=== PATIENT | female | born 1995 | race African-American/Black ===

== ENCOUNTER 2018-01-06 12:09 | Emergency (ER) | payer OTHER ==
[2018-01-06] MEDS ORDERED: Ibuprofen TAB* 600 MG PO ONE (13:23)
[2018-01-06] MEDS ORDERED: Cyclobenzaprine TAB* 10 MG PO ONE (13:23)
[2018-01-06 13:25] VITALS: BP 128/61
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
[2018-01-06] MEDS ORDERED: Ketorolac INJ* 60 MG/2 ML VIAL IM ONE (14:05)
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
== END 2018-01-06 14:47 | disposition home or self-care (01) ==
LOC: UCEAST 12:09
DX: S76.912A Strain of unspecified muscles, fascia and tendons at thigh level, left thigh, initial encounter (principal); X50.9XXA Other and unspecified overexertion or strenuous movements or postures, initial encounter; Y93.9 Activity, unspecified; Y92.9 Unspecified place or not applicable; Z72.0 Tobacco use
CPT/HCPCS: 99212; A9270-GY; G0463; J1885

== ENCOUNTER 2018-01-15 08:43 | Emergency (ER) | payer OTHER ==
[2018-01-15 09:03] VITALS: BP 111/66
--- NOTE | 2018-01-15 10:03 | UC ---
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 She is also curious if she has an exercise-induced bronchospasm is occasionally after hard workout she'll feel she needs to take some deep breaths she's never been known to wheeze. She has no other upper respiratory symptoms no fevers chills no earache sore throat nasal drainage - History of Current Complaint Chief Complaint: UCEye Stated Complaint: EYE ISSUE Time Seen by Provider: 01/15/18 09:53 Hx Obtained From: Patient Hx Last Menstrual Period: 12/23/17 ?: No Onset/Duration: Sudden Onset, Lasting Days Timing: Constant Severity Initially: Moderate Severity Currently: Moderate Pain Intensity: 7 Pain Scale Used: 0-10 Numeric Aggravating Factors: Nothing Alleviating Factors: Nothing Associated Signs And Symptoms: Negative: URI, Nasal Congestion - Allergies/Home Medications Allergies/Adverse Reactions: Allergies Allergy/AdvReac Type Severity Reaction Status Date / Time cocoa butter Allergy Itching Verified 01/15/18 08:58 PMH/Surg Hx/FS Hx/Imm Hx Previously Healthy: Yes - Surgical History Surgical History: None - Family History Known Family History: Positive: Hypertension - Social History Occupation: Employed Full-time Lives: With Family Alcohol Use: Occasionally Alcohol Amount: Wine, liquor Substance Use Type: None Smoking Status (MU): Current Some Day Smoker Type: Cigarettes Amount Used/How Often: 1 cigarette/week Length of Time of Smoking/Using Tobacco: 4 years Have You Smoked in the Last Year: Yes Household Exposure Type: Cigars Review of Systems Constitutional: Negative Skin: Negative Eyes: Eye Redness - Erythema slight swelling right eye, no visual deficits ENT: Negative Respiratory: Negative Cardiovascular: Negative Gastrointestinal: Negative Genitourinary: Negative Motor: Negative Neurovascular: Negative Musculoskeletal: Negative Neurological: Negative Psychological: Negative Is Patient Immunocompromised?: No All Other Systems Reviewed And Are Negative: Yes Physical Exam Triage Information Reviewed: Yes Appearance: Well-Appearing, No Pain Distress, Well-Nourished Vital Signs: Initial Vital Signs Temp 97.9 F 01/15/18 08:59 Pulse 74 01/15/18 08:59 Resp 18 01/15/18 08:59 BP 111/66 01/15/18 08:59 Pulse Ox 100 01/15/18 08:59 Vital Signs Reviewed: Yes Eye Exam: Normal Eyes: Positive: Other: - Slight swelling right upper eyelid some injection right eye PERRLA, EOMI no photophobia ENT Exam: Normal ENT: Positive: Normal ENT inspection, Hearing grossly normal, Pharynx normal. Negative: Nasal congestion, Trismus, Muffled voice, Hoarse voice Dental Exam: Normal Neck exam: Normal Neck: Positive: Supple, Nontender Respiratory Exam: Normal Respiratory: Positive: Chest non-tender, Lungs clear, Normal breath sounds, No respiratory distress, No accessory muscle use Cardiovascular Exam: Normal Cardiovascular: Positive: Pulses Normal, Brisk Capillary Refill Musculoskeletal Exam: Normal Musculoskeletal: Positive: Strength Intact, ROM Intact, No Edema Neurological Exam: Normal Neurological: Positive: Alert, Muscle Tone Normal Psychological Exam: Normal Skin Exam: Normal UC Diagnostic Evaluation - Laboratory O2 Sat by Pulse Oximetry: 100 Respiratory Course/Dx - Course Course Of Treatment: Patient provided education for exercise-induced bronchospasm and the difference between that and asthma. Patient taken out of work for 24 hours due to conjunctivitis. Antibiotics eyedrops started. Patient will try albuterol inhaler when necessary and notify primary care provider of results - Differential Dx/Diagnosis Provider Diagnoses: OD conjunctivitis, exercise induced bronchospasm, nicotine abuse Discharge - Sign-Out/Discharge Documenting (check all that apply): Discharge - Discharge Plan Condition: Stable Disposition: HOME Prescriptions: Albuterol HFA INHALER* [Ventolin HFA Inhaler*] 2 puff INH Q4H PRN #1 mdi PRN Reason: cough, chest tightness Polymyx/Trimethoprim OPTH* [Polytrim OPHTH*] 1 drop RIGHT EYE QID #1 btl Patient Education Materials: Exercise-Induced Bronchoconstriction (ED), Conjunctivitis (ED) Forms: *Work Release Referrals: [facility] PHYSICIAN REFERRAL [Outside] - If Needed - Billing Disposition and Condition Condition: STABLE Disposition: HOME
== END 2018-01-15 10:09 | disposition home or self-care (01) ==
LOC: UCEAST 08:43
DX: H10.31 Unspecified acute conjunctivitis, right eye (principal); J45.990 Exercise induced bronchospasm; Z72.0 Tobacco use
CPT/HCPCS: 99212; G0463

== ENCOUNTER 2018-04-19 13:21 | Emergency (ER) | payer SELFPAY ==
[2018-04-19 13:27] VITALS: BP 132/63
[2018-04-19] MEDS ORDERED: Tetracaine 0.5% OPTH.SOL 4 ML* 1 DROP BTL RIGHT EYE ONE (13:36)
[2018-04-19] MEDS ORDERED: Fluorescein Sod TOPICAL 0.6* 0.6 MG TEST OPHTHALMIC ONE (13:36)
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
[2018-04-19] MEDS ORDERED: Ibuprofen TAB* 600 MG PO ONE (14:07)
== END 2018-04-19 14:15 | disposition home or self-care (01) ==
LOC: UCEAST 13:21
DX: S05.01XA Injury of conjunctiva and corneal abrasion without foreign body, right eye, initial encounter (principal); F17.210 Nicotine dependence, cigarettes, uncomplicated; Z91.018 Allergy to other foods; Y04.0XXA Assault by unarmed brawl or fight, initial encounter; Y92.9 Unspecified place or not applicable
CPT/HCPCS: 99212; A9270-GY; G0463

== ENCOUNTER 2018-04-25 14:21 | Emergency (ER) | payer SELFPAY ==
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
--- NOTE | 2018-04-25 17:11 | RAD ---
INDICATION: Pain at the left temporomandibular joint COMPARISON: None. TECHNIQUE: 5 views of the mandible were obtained. FINDINGS: The adequately corticated bones are in normal alignment. No fracture is seen. IMPRESSION: NO EVIDENCE FOR FRACTURE OR OTHER FOCAL BONY ABNORMALITY. IF THE PATIENT'S SYMPTOMS PERSIST RECOMMEND FOLLOW-UP IMAGING
[2018-04-25 17:49] VITALS: BP 118/67
== END 2018-04-25 17:40 | disposition home or self-care (01) ==
LOC: UCEAST 14:21
DX: S00.83XA Contusion of other part of head, initial encounter (principal); R10.11 Right upper quadrant pain; Z91.018 Allergy to other foods; Z72.0 Tobacco use; X58.XXXA Exposure to other specified factors, initial encounter; Y92.9 Unspecified place or not applicable
CPT/HCPCS: 70110; 81003; 84702; 99214; G0463

== ENCOUNTER 2018-04-25 18:32 | Emergency (ER) | payer MEDICAID ==
[2018-04-25 20:56] LABS: Hematocrit 34 % (35-47); Hemoglobin 10.8 g/dl (12.0-16.0); Mean Corpuscular HGB Conc 31 g/dl (31-36); Mean Corpuscular Hemoglobin 21 pg (27-31); Mean Corpuscular Volume 65 fL (80-97); Mean Platelet Volume 8.9 um3 (7.4-10.4); Platelet Count 225 10^3/ul (150-450); Red Blood Count 5.26 10^6/ul (4.00-5.40); Red Cell Distribution Width 19 % (10.5-15); White Blood Count 9.3 10^3/ul (3.5-10.8)
[2018-04-25 21:02] LABS: EGFR Non-African American 96.6 (>60)
[2018-04-25 21:18] LABS: ABS Basophils 0.1 10^3/ul (0-0.2); ABS Eosinophils 0.1 10^3/ul (0-0.6); ABS Lymphocytes 2.1 10^3/ul (1.0-4.8); ABS Monocytes 0.6 10^3/ul (0-0.8); ABS Neutrophils 6.5 10^3/ul (1.5-7.7); ABS Nucleated RBC 0 10^3/ul; Eosinophil % 0.7 % (0-6); Lymphocyte % 22.5 % (25-47); Nucleated Red Blood Cells % 0.1
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
[2018-04-25] MEDS ORDERED: Lidocaine 2% VISCOUS* 15 ML UDC PO ONE (22:26)
[2018-04-25] MEDS ORDERED: Al Hydrox/Mg Hydrox/Simet LIQ* 30 ML UDC PO ONE (22:26)
[2018-04-25 22:36] LABS: Urine Appearance Clear; Urine Blood Negative (Negative); Urine Color Straw; Urine Ketones 1+ (Negative); Urine Protein Negative (Negative); Urine Urobilinogen Negative (Negative)
[2018-04-25 23:19] VITALS: BP 139/80
--- NOTE | 2018-04-26 07:00 | RAD ---
INDICATION: Right upper quadrant pain. COMPARISON: There are no prior studies available for comparison. TECHNIQUE: Multiple real-time images of the right upper quadrant were obtained. FINDINGS: The gallbladder appears slightly contracted. There is mild thickening of the wall which appears to be secondary to the contracted state. No gallstones are seen. No pericholecystic fluid is present. No positive sonographic Darden sign was noted. No intra or extrahepatic ductal distention is present. The common bile duct measured 0.4 cm in diameter. The liver is normal in size without significant focal abnormality. The pancreas is partially obscured by overlying bowel gas. The right kidney is normal in size without evidence for hydronephrosis. IMPRESSION: MILDLY CONTRACTED GALLBLADDER, OTHERWISE UNREMARKABLE STUDY.
== END 2018-04-25 23:17 | disposition home or self-care (01) ==
LOC: ED 18:32
DX: R10.13 Epigastric pain (principal); R10.11 Right upper quadrant pain; R11.0 Nausea; K82.0 Obstruction of gallbladder; F41.0 Panic disorder [episodic paroxysmal anxiety]; Z72.0 Tobacco use
CPT/HCPCS: 36415; 76705; 80053; 81003; 83690; 84702; 85025; 86140; 99283; A9270-GY

== ENCOUNTER 2018-07-31 13:35 | Emergency (ER) | payer SELFPAY ==
[2018-07-31 15:09] LABS: ABS Basophils 0 10^3/ul (0-0.2); ABS Eosinophils 0.1 10^3/ul (0-0.6); ABS Lymphocytes 1.3 10^3/ul (1.0-4.8); ABS Monocytes 0.5 10^3/ul (0-0.8); ABS Neutrophils 4.9 10^3/ul (1.5-7.7); ABS Nucleated RBC 0 10^3/ul; Eosinophil % 0.8 % (0-6); Hematocrit 34 % (35-47); Hemoglobin 10.7 g/dl (12.0-16.0); Lymphocyte % 19.1 % (25-47); Mean Corpuscular HGB Conc 31 g/dl (31-36); Mean Corpuscular Hemoglobin 20 pg (27-31); Mean Corpuscular Volume 65 fL (80-97); Mean Platelet Volume 8.5 um3 (7.4-10.4); Nucleated Red Blood Cells % 0; Platelet Count 222 10^3/ul (150-450); Red Blood Count 5.32 10^6/ul (4.00-5.40); Red Cell Distribution Width 21 % (10.5-15); White Blood Count 6.7 10^3/ul (3.5-10.8)
[2018-07-31 15:21] LABS: EGFR Non-African American 93.7 (>60)
--- NOTE | 2018-07-31 15:50 | RAD ---
Indication: Back pain. 3 views of the lumbar spine demonstrate vertebral bodies to be normal in height. Disc spaces all well-preserved. There is straightening of the normal lordosis. IMPRESSION: Straightening of the normal lordosis without evidence of fracture.
--- NOTE | 2018-07-31 20:45 | RAD ---
EXAM: US Abdomen Limited, Right Upper Quadrant EXAM DATE/TIME: 07/31/2018 7:53 PM CLINICAL HISTORY: 22 years old, female; Pain; Abdominal pain; Localized; Right upper quadrant (ruq); Additional info: Ruq pain TECHNIQUE: Real-time ultrasound of the abdomen with image documentation. Examination was focused on the right upper quadrant. COMPARISON: GB US GALL BLADDER 04/25/2018 9:07 PM FINDINGS: Liver: Normal. No masses. Gallbladder: Normal. No gallstones. There is no gallbladder wall thickening. Negative sonographic Darden sign. Common bile duct: Normal. No stones. No dilation. Pancreas: Visualized pancreas is unremarkable. Right kidney: Normal. No mass. No hydronephrosis. IMPRESSION: No acute findings. To contact [facility] with a general question: [facility] - [phone] For direct physician to physician contact: Physician Hotline - [phone] [facility] ([facility] Facility ID #[id number])
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
[2018-07-31 21:04] LABS: Urine Appearance Clear; Urine Blood Negative (Negative); Urine Color Straw; Urine Ketones Negative (Negative); Urine Protein Negative (Negative); Urine Specific Gravity 1.004 (1.010-1.030); Urine Urobilinogen Negative (Negative)
[2018-07-31 21:18] VITALS: BP 118/67
--- NOTE | 2018-08-04 06:46 | PN ---
Progress Note - Progress Note Date of Service: 08/04/18 Note: patient wound culture grew peptostreptococcus anerobius and normal nataliya. sent script for augmentin 500mg bid x7days. left vm with patient told that if notice redness or getting worst to start script.
== END 2018-07-31 21:17 | disposition home or self-care (01) ==
LOC: ED 13:35
DX: S39.012A Strain of muscle, fascia and tendon of lower back, initial encounter (principal); R10.11 Right upper quadrant pain; L02.91 Cutaneous abscess, unspecified; F17.210 Nicotine dependence, cigarettes, uncomplicated; X58.XXXA Exposure to other specified factors, initial encounter; Y92.9 Unspecified place or not applicable
CPT/HCPCS: 10060; 36415; 72100; 76705; 80053; 81003; 85025; 87070; 87076; 87205; 87640; 87641; 93005; 99284

== ENCOUNTER 2018-09-17 15:26 | Emergency (ER) | payer OTHER ==
[2018-09-17 15:37] VITALS: BP 117/57
[2018-09-17] MEDS ORDERED: Sulfamethox/Trimethoprim DS 800/160* TAB PO ONE (16:18)
[2018-09-17] MEDS ORDERED: Phenazopyridine TAB* 100 MG PO ONE (16:18)
--- NOTE | 2018-09-17 16:24 | UC ---
Abdominal Pain Female HPI - HPI Summary HPI Summary: 22-year-old woman comes to clinic today with a chief complaint of abdominal pain. Pain started this morning. It's crampy. It's primarily just above the umbilicus. She notes that she has not had a bowel movement 3 days and she feels like she needs to have a bowel movement. She is tried extra water lemon juice yoga and she still has not had a bowel movement. Pains about a 7 out of 10. Is also worse when you push on IT. No fevers. He did vomit after eating. No prior surgeries. She has had increased urinary frequency today. No abnormal vaginal discharge. Denies any concerns of STI. She does have chronic intermittent right upper quadrant pain and she's been seen in the emergency department in April and July 2018 for this. She had a normal ultrasound and essentially normal lab work and July 2018 for this intermittent chronic right upper quadrant pain. She is also having the discomfort today but the pain that she's coming to clinic for is different than her chronic intermittent right upper quadrant pain. - History of Current Complaint Chief Complaint: UCAbdominalPain Stated Complaint: ABDOMINAL PAIN Time Seen by Provider: 09/17/18 15:33 Hx Last Menstrual Period: 08/25/18 Pain Intensity: 8 Allergies/Adverse Reactions: Allergies Allergy/AdvReac Type Severity Reaction Status Date / Time coconut Allergy Severe Airway Verified 09/17/18 15:38 Obstruction cocoa butter Allergy Itching Verified 09/17/18 15:38 PMH/Surg Hx/FS Hx/Imm Hx Previously Healthy: Yes - Surgical History Surgical History: None - Family History Known Family History: Positive: Hypertension - Social History Alcohol Use: Rare Alcohol Amount: Wine, liquor Substance Use Type: Marijuana Smoking Status (MU): Never Smoked Tobacco Type: Cigarettes Amount Used/How Often: 1 cigarette/week Length of Time of Smoking/Using Tobacco: 4 years Have You Smoked in the Last Year: Yes Household Exposure Type: Cigars Review of Systems All Other Systems Reviewed And Are Negative: Yes Constitutional: Positive: Negative Skin: Positive: Negative Eyes: Positive: Negative ENT: Positive: Negative Respiratory: Positive: Negative Cardiovascular: Positive: Negative Gastrointestinal: Positive: Abdominal Pain, Vomiting, Nausea Genitourinary: Positive: Dysuria, Frequency, Urgency. Negative: Vaginal/Penile Burning, Vaginal/Penile Itching, Vaginal/Penile Discharge, Vaginal/Penile Pain Motor: Positive: Negative Neurovascular: Positive: Negative Musculoskeletal: Positive: Negative Neurological: Positive: Negative Psychological: Positive: Negative Is Patient Immunocompromised?: No Physical Exam Triage Information Reviewed: Yes Appearance: Well-Appearing, Well-Nourished, Pain Distress - MILD Vital Signs: Initial Vital Signs Temp 98.8 F 09/17/18 15:33 Pulse 86 09/17/18 15:33 Resp 18 09/17/18 15:33 BP 117/57 09/17/18 15:33 Pulse Ox 100 09/17/18 15:33 Vital Signs Reviewed: Yes Eye Exam: Normal Eyes: Positive: Conjunctiva Clear Neck exam: Normal Neck: Positive: Supple Respiratory: Positive: Lungs clear, Normal breath sounds, No respiratory distress Cardiovascular Exam: Normal Cardiovascular: Positive: RRR Abdomen Description: Positive: Other: - Tender to palpation in the epigastrium and just superior to the umbilicus. Patient is nontender in the right lower quadrant suprapubic or left lower quadrant areas. No rebound.. Negative: CVA Tenderness (R), CVA Tenderness (L) Bowel Sounds: Positive: Present Musculoskeletal Exam: Normal Musculoskeletal: Positive: Strength Intact, ROM Intact Neurological Exam: Normal Neurological: Positive: Alert, Muscle Tone Normal Psychological Exam: Normal Psychological: Positive: Age Appropriate Behavior Skin Exam: Normal Abd Pain Female Course/Dx - Course Course Of Treatment: Order Information: CT ABD/PEL W/O. Accession Number: [id number]. CPT: 99801. INDICATION: Mid to upper abdominal pain beginning today. Constipation. Nausea and. vomiting. COMPARISON: July 31, 2018 RIGHT upper quadrant ultrasound. TECHNIQUE: Multidetector CT images were obtained from the lung bases to the ischial. tuberosities. No oral contrast administered. Assessment of the visceral limited without. IV contrast. Multiplanar reformation. REPORT: VISUALIZED INFERIOR THORAX: Unremarkable visualized inferior thorax. LIVER / GALLBLADDER / PANCREAS / SPLEEN: No CT abnormality of the unenhanced liver,. gallbladder, pancreas, spleen. ALIMENTARY TRACT: No CT abnormality of the upper GI, small bowel, appendix visualized. medial to the cecum, or colon evident. Negative for ascites, free air, hernias. MESENTERIC: Unremarkable. ADRENAL / GENITOURINARY: Unremarkable adrenal glands, kidneys, ureters, and partially. distended urinary bladder limiting assessment without gross abnormality. Unremarkable. anteverted uterus and LEFT adnexal region. Enlarged RIGHT ovary with approximate 4 cm. maximum dimension water density cyst most suspicious for a follicular cyst. RETROPERITONEAL: Negative for lymphadenopathy within limits of noncontrast exam. VASCULAR: Normal diameter abdominal aorta and iliac arteries. Physiologic distention of. the IVC. BONES: Variant sacralization of L5 with degenerative arthropathy at the interface of the. L5 ala with the sacral ala. Negative for suspicious focal osseous lesions. SOFT TISSUE: Unremarkable. IMPRESSION: #. No pathologic process of the alimentary tract evident. Normal appendix documented. #. 4 cm lesion of the RIGHT ovary most suspicious for a follicular cyst. Correlate with. clinical assessment and consider pelvic ultrasound for further assessment if deemed. appropriate. #. No free fluid evident. . < Electronically signed by Kevin Avendano MD in [facility]> 09/17/18 0401. I discussed the CT results and the urine results with the patient. Abdominal pains in the upper abdomen. Normal appendix demonstrated no fevers here. There is a 4 cm right ovarian cyst the patient is nontender in the right lower quadrant. For the ovarian cyst and then have her follow up with [facility]. For the recurrence abdominal pain and constipation issues. Have her follow up with gastroenterology. She should also get a primary care doctor. For the abdominal pain I discussed with her going to the emergency department which she declined. The plan is suture cell Zofran and with a single dose of magnesium citrate. For the leukocytes in the urine and urine symptoms we'll treat with Bactrim and Pyridium. Overall I let her know that if her symptoms worsen or continue she needs to be evaluated immediately in the emergency department. - Differential Dx/Diagnosis Provider Diagnosis: Abdominal pain, Epigastric pain, Constipation, Ovarian cyst, UTI (urinary tract infection) Discharge - Sign-Out/Discharge Documenting (check all that apply): Patient Departure All imaging exams completed and their final reports reviewed: Yes - Discharge Plan Condition: Stable Disposition: HOME Prescriptions: Magnesium CITRATE* [Citrate of Magnesia*] 300 ml PO ONCE #1 btl Methylcellulose (with Sugar) [Citrucel Powder] 1 tbsp PO BID #14 powder Ondansetron ODT TAB* [Zofran 4 MG Odt TAB*] 4 mg PO Q6H PRN #10 tab.odt PRN Reason: Nausea Phenazopyridine 200 mg (NF) [Pyridium 200 MG tab *] 200 mg PO TID PRN #6 tab PRN Reason: Pain Sulfamethox/Trimethoprim DS* [Bactrim DS 800/160 TAB*] 1 tab PO BID #13 tab Patient Education Materials: Acute Abdominal Pain (ED), Ovarian Cyst (ED), Constipation (ED), Urinary Tract Infection in Women (ED) Forms: *Work Release Referrals: [facility] [place] PHYSICIAN REFERRAL [Outside] [facility] Gastroenterology [Provider Group] Dori Willis MD [Medical Doctor] - [facility] [Provider Group] Additional Instructions: FOLLOW UP WITH YOUR PRIMARY CARE DOCTOR FOR YOUR UTI, GASTROENTEROLOGY FOR YOU CONSTIPATION AND ABDOMINAL PAIN, AND OBGYN FOR YOUR OVARIAN CYST. GO TO THE EMERGENCY DEPARTMENT FOR ANY WORSENING OF YOUR CONDITION; PAIN, FEVER , VOMITING, YOU FEEL ILL OR QUESTIONS OR CONCERNS. - Billing Disposition and Condition Condition: STABLE Disposition: Home
[2018-09-17] MEDS ORDERED: Lidocaine 2% VISCOUS* 15 ML UDC PO ONE (17:23)
[2018-09-17] MEDS ORDERED: Al Hydrox/Mg Hydrox/Simet LIQ* 30 ML UDC PO ONE (17:23)
--- NOTE | 2018-09-19 10:54 | UC ---
- Progress Note Progress Note: urine final- no growth no change christen 09/19/18 Course/Dx - Diagnoses Provider Diagnoses: Abdominal pain, Epigastric pain, Constipation, Ovarian cyst, UTI (urinary tract infection) Discharge - Sign-Out/Discharge Documenting (check all that apply): Post-Discharge Follow Up All imaging exams completed and their final reports reviewed: Yes - Discharge Plan Condition: Stable Disposition: HOME Prescriptions: Magnesium CITRATE* [Citrate of Magnesia*] 300 ml PO ONCE #1 btl Methylcellulose (with Sugar) [Citrucel Powder] 1 tbsp PO BID #14 powder Ondansetron ODT TAB* [Zofran 4 MG Odt TAB*] 4 mg PO Q6H PRN #10 tab.odt PRN Reason: Nausea Phenazopyridine 200 mg (NF) [Pyridium 200 MG tab *] 200 mg PO TID PRN #6 tab PRN Reason: Pain Sulfamethox/Trimethoprim DS* [Bactrim DS 800/160 TAB*] 1 tab PO BID #13 tab Patient Education Materials: Ovarian Cyst (ED), Constipation (ED), Urinary Tract Infection in Women (ED), Acute Abdominal Pain (ED) Forms: *Work Release Referrals: [facility] Gastroenterology [Provider Group] [facility] [Provider Group] [facility] [place] PHYSICIAN REFERRAL [Outside] Dori Willis MD [Medical Doctor] - Additional Instructions: FOLLOW UP WITH YOUR PRIMARY CARE DOCTOR FOR YOUR UTI, GASTROENTEROLOGY FOR YOU CONSTIPATION AND ABDOMINAL PAIN, AND OBGYN FOR YOUR OVARIAN CYST. GO TO THE EMERGENCY DEPARTMENT FOR ANY WORSENING OF YOUR CONDITION; PAIN, FEVER , VOMITING, YOU FEEL ILL OR QUESTIONS OR CONCERNS. - Billing Disposition and Condition Condition: STABLE Disposition: Home
== END 2018-09-17 17:32 | disposition home or self-care (01) ==
LOC: UCEAST 15:26
DX: R10.13 Epigastric pain (principal); R10.10 Upper abdominal pain, unspecified; K59.00 Constipation, unspecified; N83.201 Unspecified ovarian cyst, right side; N39.0 Urinary tract infection, site not specified; Z72.0 Tobacco use
CPT/HCPCS: 74176; 81003; 84702; 87086; 99213; A9270-GY; G0463

== ENCOUNTER 2019-10-21 21:28 | Emergency (ER) | payer OTHER ==
[2019-10-21 21:40] VITALS: BP 120/64
[2019-10-21] MEDS ORDERED: Lidocaine 1% MPF ** 5 ML VIAL INJ ONE (21:45)
[2019-10-21] MEDS ORDERED: Amoxicillin/Clavulanate TAB* 875 MG PO ONE (21:46)
--- NOTE | 2019-10-21 22:18 | UC ---
Skin Complaint HPI - HPI Summary HPI Summary: 2 DAYS OF WORSENING PAIN AND SWELLING RIGHT UPPER INNER THIGH. STATES SHE HAS HAD AN ABSCESS IN THAT SAME SPOT EARLIER THIS YEAR. NO FEVER. NO DRAINAGE. NO H/O MRSA. - History of Current Complaint Chief Complaint: UCSkin Time Seen by Provider: 10/21/19 21:29 Stated Complaint: SORE ON INNER THIGH Hx Obtained From: Patient Hx Last Menstrual Period: t-1 Onset/Duration: Gradual Onset, Lasting Days, Still Present Timing: Constant Onset Severity: Moderate Current Severity: Moderate Pain Intensity: 8 Pain Scale Used: 0-10 Numeric Location: Discrete - RIGHT UPPER INNER THIGH Character: Swelling, Pain, Redness Aggravating Factor(s): Touch Alleviating Factor(s): Nothing Associated Signs & Symptoms: Positive: Tenderness - Allergy/Home Medications Allergies/Adverse Reactions: Allergies Allergy/AdvReac Type Severity Reaction Status Date / Time coconut Allergy Severe Airway Verified 10/21/19 21:46 Obstruction cocoa butter Allergy Itching Verified 10/21/19 21:46 PMH/Surg Hx/FS Hx/Imm Hx Previously Healthy: Yes - Surgical History Surgical History: None - Family History Known Family History: Positive: Hypertension - Social History Alcohol Use: Rare Alcohol Amount: Wine, liquor Substance Use Type: Marijuana Substance Use Comment - Amount & Last Used: occasionally Smoking Status (MU): Never Smoked Tobacco Type: Cigarettes Amount Used/How Often: 1 cigarette/week Length of Time of Smoking/Using Tobacco: 4 years Have You Smoked in the Last Year: Yes Household Exposure Type: Cigars Review of Systems All Other Systems Reviewed And Are Negative: Yes Constitutional: Positive: Negative Skin: Positive: Other - ABSCESS Respiratory: Positive: Negative Cardiovascular: Positive: Negative Gastrointestinal: Positive: Negative Physical Exam Triage Information Reviewed: Yes Appearance: Well-Appearing, No Pain Distress, Well-Nourished Vital Signs: Initial Vital Signs Temp 98.4 F 10/21/19 21:37 Pulse 80 10/21/19 21:37 Resp 18 10/21/19 21:37 BP 120/64 10/21/19 21:37 Pulse Ox 100 10/21/19 21:37 Vital Signs Reviewed: Yes Eyes: Positive: Conjunctiva Clear ENT: Positive: Hearing grossly normal Neck: Positive: Supple Respiratory: Positive: No respiratory distress, No accessory muscle use Cardiovascular: Positive: Pulses Normal Abdomen Description: Positive: Soft Musculoskeletal: Positive: No Edema Neurological: Positive: Alert Psychological: Positive: Age Appropriate Behavior Skin: Positive: Other - 5CM X 3.5CM RAISED, FLUCTUANT, TENDER LESION RIGHT UPPER INNER THIGH Procedures - Incision and Drainage Right Upper Thigh Site: RIGHT UPPER INNER THIGH Anesthesia: Local - 1% LIDOCAINE Instrument(s): Scalpel - 11 BLADE Packing: Gauze - 1/4 INCH PLAIN Course/Dx - Course Course Of Treatment: TIME OUT COMPLETE. LA ANESTHESIA ACHIEVED WITH 1% LIDO. I&D OF ABSCESS RIGHT UPPER THIGH PERFORMED. COPIOUS PURULENT DRAINAGE EXPRESSED. WOUND PACKED. SPECIMEN SENT FOR CULTURE. 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 WILL RX AUGMENTIN TWICE DAILY FOR 10 DAYS. OTC MEDICATIONS NEEDED FOR DISCOMFORT. GIVEN THAT THIS IS A RECURRENT ABSCESS RECOMMEND SHE FOLLOW UP WITH GENERAL SURGERY TO DISCUSS DEFINITIVE MANAGEMENT. - Diagnoses Provider Diagnosis: Abscess of right thigh Discharge ED - Sign-Out/Discharge Documenting (check all that apply): Patient Departure All imaging exams completed and their final reports reviewed: No Studies - Discharge Plan Condition: Stable Disposition: HOME Prescriptions: Amoxicillin/Clavulanate TAB* [Augmentin TAB 875*] 875 mg PO BID #19 tab Patient Education Materials: Abscess (ED) Referrals: [facility] [Outside] - If Needed Aldo Harrell MD [Medical Doctor] - Additional Instructions: GIVEN THAT YOUR ABSCESS IS RECURRENT I RECOMMEND YOU FOLLOW-UP WITH GENERAL SURGERY TO DISCUSS DEFINITIVE TREATMENT. TAKE THE ANTIBIOTICS FOR THE FULL 10 DAYS. SPECIMEN HAS BEEN SENT FOR CULTURE AND WE WILL CALL YOU IF YOUR MEDICATION NEEDS TO BE CHANGED. WARM/HOT COMPRESSES TO THE AREA SEVERAL TIMES DAILY. KEEP THE PACKING IN PLACE FOR THE NEXT 2 DAYS. RETURN FOR RECHECK IF YOUR CONDITION IS NOT IMPROVING EXPECTED. OTC MEDICATIONS NEEDED FOR DISCOMFORT. CALL THE NUMBER BELOW FOR ASSISTANCE IN ESTABLISHING WITH A PCP An additional resource available to assist in finding the appropriate physician for your health care needs is the [facility] ([facility]). You may contact them by calling [phone]. - Billing Disposition and Condition Condition: STABLE Disposition: Home
== END 2019-10-21 22:15 | disposition home or self-care (01) ==
LOC: UCEAST 21:28
DX: L02.415 Cutaneous abscess of right lower limb (principal); Z91.018 Allergy to other foods
CPT/HCPCS: 10060; 87070; 87205; 87640; 87641; 99212; A9270-GY; G0463

== ENCOUNTER 2019-11-08 17:17 | Emergency (ER) | payer BC, OTHER ==
[2019-11-08 17:25] VITALS: BP 116/79
--- NOTE | 2019-11-08 17:39 | UC ---
Upper Extremity HPI - HPI Summary HPI Summary: Patient is a 23yo female presenting with L shoulder pain and neck pain after falling outside on the cement around 1600. Patient states she "can't describe how she fell because it happened so fast." Notes pain radiating from L shoulder to L side of neck and down to L scapula. Patient unsure of swelling or bruising. States pain is worse with lifting arm and turning neck to the left. Patient denies taking anything for pain relief. Denies prior injury to shoulder or neck. - History of Current Complaint Chief Complaint: UCUpperExtremity Stated Complaint: SHOULDER INJURY Hx Obtained From: Patient Hx Last Menstrual Period: 10/14/19 Pain Intensity: 8 Pain Scale Used: 0-10 Numeric - Allergies/Home Medications Allergies/Adverse Reactions: Allergies Allergy/AdvReac Type Severity Reaction Status Date / Time coconut Allergy Severe Airway Verified 11/08/19 17:26 Obstruction cocoa butter Allergy Itching Verified 11/08/19 17:26 Home Medications: Home Medications NK [No Home Medications Reported] 11/08/19 [History Confirmed 11/08/19] PMH/Surg Hx/FS Hx/Imm Hx Previously Healthy: Yes - Surgical History Surgical History: None - Family History Known Family History: Positive: Hypertension - Social History Alcohol Use: Rare Alcohol Amount: Wine, liquor Substance Use Type: Marijuana Substance Use Comment - Amount & Last Used: occasionally Smoking Status (MU): Never Smoked Tobacco Type: Cigarettes Amount Used/How Often: 1 cigarette/week Length of Time of Smoking/Using Tobacco: 4 years Have You Smoked in the Last Year: Yes Household Exposure Type: Cigars Review of Systems All Other Systems Reviewed And Are Negative: No Constitutional: Positive: Negative Skin: Positive: Negative. Negative: Bruising Respiratory: Positive: Negative Cardiovascular: Positive: Negative Motor: Positive: Negative Neurovascular: Positive: Negative Musculoskeletal: Positive: Negative Neurological: Negative: Paresthesia, Numbness Physical Exam Triage Information Reviewed: Yes Appearance: Well-Appearing, No Pain Distress, Well-Nourished Vital Signs: Initial Vital Signs Temp 97.9 F 11/08/19 17:23 Pulse 82 11/08/19 17:23 Resp 18 11/08/19 17:23 BP 116/79 11/08/19 17:23 Pulse Ox 100 11/08/19 17:23 Vital Signs Reviewed: Yes Eyes: Positive: Conjunctiva Clear ENT: Positive: Hearing grossly normal Neck: Positive: Supple Respiratory: Positive: No respiratory distress Cardiovascular: Positive: Pulses Normal - strong radial pulses b/l Musculoskeletal Exam: Other - no obvious deformity Musculoskeletal: Positive: Strength Intact, No Edema, ROM Limited @ - unable to flex L shoulder past 90 degrees d/t pain. L shoulder abduction limited to 90 degress d/t pain., Other: - tenderness to palpation of L trapezius muscle. tenderness to palpation of AC joint. No midline tenderness of C spine Neurological Exam: Other - sensation grossly intact Neurological: Positive: Alert Psychological: Positive: Age Appropriate Behavior Skin Exam: Normal - no erythema or ecchymosis Diagnostics - Radiology L shoulder Radiology Interpretation Completed By: ED Physician Summary of Radiographic Findings: neg fx c spine Radiology Interpretation Completed By: ED Physician Summary of Radiographic Findings: neg fx Upper Extremity Course/Dx - Course Course Of Treatment: Discussed initial negative read of radiographs with patient and that she would be notified with any abnormalities found on final report in the morning. Patient received toradol IM here in the clinic for pain. Instructed to continue with rest, ice, and otc analgesics. INstructed not to take any more NSAIDs today. Also provided patient with shoulder exercises to keep it mobile. She received sling before leaving and referral for ortho if pain persists. Patient voiced understanding and agreed with treatment plan. - Differential Dx/Diagnosis Differential Diagnosis/HQI/PQRI: Fracture (Open), Strain, Sprain Provider Diagnosis: Muscle spasms of neck, Sprain of shoulder, left Discharge ED - Sign-Out/Discharge Documenting (check all that apply): Patient Departure All imaging exams completed and their final reports reviewed: No - Discharge Plan Condition: Stable Disposition: HOME Patient Education Materials: Shoulder Separation Exercises (GEN), Shoulder Sprain (ED) Forms: *Work Release Referrals: Juvenal Gregory MD [Medical Doctor] - If Needed Additional Instructions: As discussed, your radiograph was reviewed by the provider that treated you tonight. It will be read by a radiologist tomorrow morning. If there is a finding other than that discussed with you today, you will receive a call from a care provider. Rest, ice, and use the sling to help alleviate pain symptoms. Use over the counter pain medications as directed for pain relief. Do not take any more ibuprofen or other NSAIDs today. Refrain from strenuous physical activity until pain has resolved. You should perform the shoulder exercises provided to you 2-3 times daily to keep the shoulder mobile. Follow up with the orthopedic referral listed below if your pain do not begin to resolve within 2 weeks. - Billing Disposition and Condition Condition: STABLE Disposition: Home - Attestation Statements Provider Attestation: I was available for consult. This patient was seen by the IGNACIO. The patient was not presented to, seen by, or examined by me. -Chloe
[2019-11-08] MEDS ORDERED: Ketorolac *IM* INJ* 60 MG/2 ML VIAL IM ONE (17:40)
--- NOTE | 2019-11-09 09:36 | UC ---
- Progress Note Progress Note: Patient Name: KARINA LEONE Medical Record#: [id number] Ordering Physician: Shaila PARKER Acct.#: [id number] : 1995 Age: 23 Sex: F Location: [facility] Exam Date: 11/08/19 1733 ADM Status: [facility] ER Order Information: SHOULDER LEFT 2+ VWS Accession Number: [id number] CPT: 92447 HISTORY: pain after fall . COMPARISONS: None relevant available at the time of dictation. VIEWS: 4, Frontal internal rotation, external rotation, outlet, and axillary views of the left shoulder FINDINGS: BONE DENSITY: Normal. BONES: There is no displaced fracture. JOINTS: There is no arthropathy. ALIGNMENT: There is no dislocation. SOFT TISSUES: Unremarkable. OTHER FINDINGS: None. IMPRESSION: NO ACUTE OSSEOUS INJURY. IF SYMPTOMS PERSIST, RECOMMEND REPEAT IMAGING. R0 Preliminary Imaging Read R0 <Electronically signed by Ramy Landa MD in OV> 11/09/19750 Dictated By: Ramy Landa MD Dictated Date/Time: 11/09/19749 Transcribed Date/Time: 11/09/19749 Copy to: CC:Sara Rowe MD; Shaila PARKER; No Primary Care Phys,[facility] Imaging - [facility] Imaging - [facility] Imaging - [facility] [address] [place] [address] This report is only to be considered final once signed by the Provider(s) as displayed in the "<Electronically Signed by >" field (s). Absence of a signature indicates the report is in a draft status and still needs to be finalized. In the event this document was created by someone other than the signing Provider, the individual initiating the document will be listed in the "Entered by:" or "Dictated by:" wu. 1 of 2 Patient Name: KARINA LEONE Medical Record#: [id number] Ordering Physician: Shaila PARKER Acct.#: [id number] : 1995 Age: 23 Sex: F Location: [facility] Exam Date: 11/08/191732 ADM Status: DEP ER Order Information: SP CERVICAL 4+VWS Accession Number: [id number] CPT: 11958 HISTORY: pain after fall COMPARISONS: None relevant available at the time of dictation. VIEWS: 5, Frontal, lateral, open-mouth odontoid, and bilateral oblique views of the cervical spine. FINDINGS: The cervical spine is visualized from the skull base through C7-T1. ALIGNMENT: The alignment is normal. VERTEBRAL BODIES: The odontoid process is intact. The atlantoaxial intervals are symmetric. JOINTS: There is no subluxation or dislocation. The facet joints are unremarkable. INTERVERTEBRAL DISCS: The intervertebral disc heights are normal. SOFT TISSUE: The prevertebral soft tissues are normal. OTHER: The skull base is normal. The lung apices are clear. IMPRESSION: NO ACUTE OSSEOUS INJURY TO THE CERVICAL SPINE. R0 Preliminary Imaging Read R0 <Electronically signed by Ramy Landa MD in OV> 11/09/19751 Dictated By: Ramy Landa MD Dictated Date/Time: 11/09/19750 Transcribed Date/Time: 11/09/19750 Copy to: CC:Sara Rowe MD; Shaila PARKER; No Primary Care Phys,[facility] Imaging - [facility] Imaging - [facility] Imaging - [facility] [address] This report is only to be considered final once signed by the Provider(s) as displayed in the "<Electronically Signed by >" field (s). Absence of a signature indicates the report is in a draft status and still needs to be finalized. In the event this document was created by someone other than the signing Provider, the individual initiating the document will be listed in the "Entered by:" or "Dictated by:" wu. 1 of 2 Course/Dx - Diagnoses Provider Diagnoses: Muscle spasms of neck, Sprain of shoulder, left Discharge ED - Sign-Out/Discharge Documenting (check all that apply): Post-Discharge Follow Up All imaging exams completed and their final reports reviewed: Yes - Discharge Plan Condition: Stable Disposition: HOME Patient Education Materials: Shoulder Separation Exercises (GEN), Shoulder Sprain (ED) Forms: *Work Release Referrals: Juvenal Gregory MD [Medical Doctor] - If Needed Additional Instructions: As discussed, your radiograph was reviewed by the provider that treated you tonight. It will be read by a radiologist tomorrow morning. If there is a finding other than that discussed with you today, you will receive a call from a care provider. Rest, ice, and use the sling to help alleviate pain symptoms. Use over the counter pain medications as directed for pain relief. Do not take any more ibuprofen or other NSAIDs today. Refrain from strenuous physical activity until pain has resolved. You should perform the shoulder exercises provided to you 2-3 times daily to keep the shoulder mobile. Follow up with the orthopedic referral listed below if your pain do not begin to resolve within 2 weeks. - Billing Disposition and Condition Condition: STABLE Disposition: Home
== END 2019-11-08 18:50 | disposition home or self-care (01) ==
LOC: UCEAST 17:17
DX: S43.402A Unspecified sprain of left shoulder joint, initial encounter (principal); Z91.018 Allergy to other foods; W18.30XA Fall on same level, unspecified, initial encounter; Y92.9 Unspecified place or not applicable
CPT/HCPCS: 72050; 99212; G0463; J1885